=== PATIENT | female | born 1955 | race Caucasian/White ===

== ENCOUNTER 2024-09-26 09:52 | Observation (INO) ==
--- NOTE | 2024-08-23 11:47 | Communication Note ---
Date of Service: August 23, 2024 - Patient contacted PAT office inquiring if she can have planned Kenalog ophthalmic injection one week prior to surgery. 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 She verbalized understanding and denied questions or concerns.
--- NOTE | 2024-08-25 14:09 | PAT Medication Instructions ---
Medication Instructions Date of Service August 25, 2024 Home Medications Medication Instructions Recorded buspirone 5 mg tablet 5 mg PO TID PRN anxiety #30 tabs 08/25/23 betamethasone dipropionate 0.05 % 1 applic topical DAILY #60 mL 05/12/24 lotion Medication List: multivitamin 1 tab PO QAM buspirone 5 mg tablet 5 mg PO TID PRN anxiety estradiol 0.01% (0.1 mg/gram) vaginal cream 0.25 appful vaginal DAILY PRN prn betamethasone dipropionate 0.05 % lotion 1 applic topical DAILY MEDICATION INSTRUCTIONS: Continue as directed estradiol 0.01% (0.1 mg/gram) vaginal cream 0.25 appful vaginal DAILY PRN prn betamethasone dipropionate 0.05 % lotion 1 applic topical DAILY (do not apply after bathing prior to surgery) DO NOT take the morning of surgery multivitamin 1 tab PO QAM Take morning of surgery With a small sip of water, OTHERWISE NOTHING TO EAT OR DRINK AFTER MIDNIGHT: buspirone 5 mg tablet 5 mg PO TID PRN anxiety Take evening before surgery buspirone 5 mg tablet 5 mg PO TID PRN anxiety Other Notes If you have any questions please call us at [phone] or [phone] or [phone] or [phone]
--- NOTE | 2024-09-06 11:05 | Anesthesiology Consultation ---
Date of Service September 06, 2024 Assessment & Plan (1) Encounter for pre-operative examination: Plan - Patient contacted PAT office inquiring if she can have planned Kenalog ophthalmic injection one week prior to surgery. 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 She verbalized understanding and denied questions or concerns. - Outpatient joint assessment: Patient is currently scheduled for inpatient pathway. If re-evaluated and patient/surgeon requests outpatient pathway, patient is acceptable candidate for outpatient joint program from anesthesia standpoint pending surgeon's office assessment of pt motivation/support/completion of same day joint program preop requirements. Chart Review Chart Review: Acceptable Risk for Surgery and Patient seen in Pre Admission Testing Teaching & Discussion Pre-Anesthesia Teaching/Discussion Notes: Instructed NPO after midnight before surgery, except medications with 15 cc of water. Medication instructions provided according to the [facility] guidelines. History Surgery Operation Date: 09/26/24 07:15 Proposed Procedures p Right Total Knee Arthroplasty - Scott De León, Height/Weight Height: 5 ft 6 in Weight: 58.6 kg Allergies Allergy/AdvReac Type Severity Reaction Status Date / Time No Known Allergies Allergy Verified 08/23/24 09:30 Medications Home Medications Medication Instructions Recorded Confirmed Last Taken multivitamin 1 tab PO QAM 12/04/22 08/23/24 2 Weeks Ago ~03/02/23 estradiol 0.01% (0.1 mg/gram) 0.25 appful vaginal DAILY PRN prn 08/25/23 08/23/24 Unknown vaginal cream betamethasone dipropionate 0.05 % 1 applic topical DAILY #60 mL 05/12/24 08/23/24 Unknown lotion escitalopram oxalate 5 mg tablet mg 09/06/24 Unknown naproxen 250 mg tablet 250 mg PO BID PRN Pain 09/06/24 09/06/24 Unknown Additional Notes: Patient was instructed to check with surgeon's office regarding naproxen and that she can continue escitalopram as prescribed. She verbalized understanding and denied questions, concerns or additional medication changes. 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 Exercise / Class Metabolic Activity II 4-5 Yardwork/Stairs/Walk up hill (denies chest discomfort or shortness of breath with one flight of stairs) Past Family History Family History Aunt Colorectal cancer Uncle Myocardial infarction Father Alzheimer disease Other No family history of adverse response to anesthesia Denies family history of Ovarian cancer Prostate cancer Breast cancer Past Surgical History Surgical History H/O eye surgery left (July 2022) left eye with radioactive chips for the eye melanoma History of colonoscopy History of tonsillectomy History of wisdom tooth extraction S/P right knee arthroscopy Past Anesthesia History No Family Hx of Anesthesia Complications and Other (slow to wake, denies needing re-intubation) History of PONV No Hx of PONV and Hx of Motion Sickness Social History Smoking Status: Never smoker Do You Dip or Chew Tobacco: No Hx Alcohol Use: No (quit around 2016) Hx Substance Use: No substance use type: does not use Review of Systems Snoring, denies witnessed apneas. Patient denies chest pain, shortness of breath, dyspnea on exertion, reflux, fever, chills, cough, wheezing, or palpitations. Physical Exam Vital Signs Vitals BP 145/73 P 60 TEMP 98.4 SP02 96% on RA RESP 18 Physical Patient resting comfortably in chair in no acute distress, alert and oriented, responding appropriately throughout visit Full cervical extension range of motion without pain TMD 3.5 finger breadths Mallampati Score 2 Dentition: several caps/crowns, denies chipped or loose teeth, implants or bridges Lungs: normal respiratory effort. Good air movement, clear throughout to auscultation, no adventitious breath sounds Cardiac: regular rate and rhythm, no murmurs noted Carotid arteries: negative bruit bilat Lab Results Anesthesia Preop Results Results Anesthesia Widget: WBC 5.62 K/ul (4.8-10.8) 09/06/24 Hgb 11.6 g/dl (12.0-16.0) L 09/06/24 Hct 36.9 % (37.0-47.0) L 09/06/24 Plt 319 K/uL (130-400) 09/06/24 Na 141 mmol/L (136-145) 09/06/24 K 3.8 mmol/L (3.5-5.1) 09/06/24 Cl 104 mmol/L (98-107) 09/06/24 CO2 33 mmol/L (21-32) H 09/06/24 BUN 14 mg/dl (6-23) 09/06/24 Creat 0.89 mg/dl (0.6-1.2) 09/06/24 Glucose Level 90 mg/dl (70-99(Fasting)) 09/06/24 PT 10.5 Seconds (9.0-12.0) 09/06/24 PTT 26 Seconds (21-31) 09/06/24 INR 1.0 (0.9-1.1) 09/06/24 Blood Type A Positive 09/06/24 Antibody Screen NEGATIVE 09/06/24 Testing Electrocardiogram Date: 02/01/24 Sinus bradycardia with PACs, rate 59 bpm Other Testing Chest CT 04/07/24 No significant change compared to the prior study. No evidence for metastatic disease within the chest.
[~2024-09-26 09:52] MED LIST: BUPIVACAINE 0.25% PF 30 ML VIAL ONE; BUPIVACAINE 0.5 % 5 MG/1 ML PF 10ML VIAL ONE; DEXAMETHASONE SOD INJ 4 MG/ML VIAL ONE; EPINEPHrine INJ 1 MG/ML AMP ONE
[2024-09-26] MEDS: LR 500ML BOLUS, THEN 15ML/HR IV SCH (10:56)
[2024-09-26] MEDS: FAMOTIDINE 20 MG TAB PO SCH (10:57)
[2024-09-26] MEDS: ACETAMINOPHEN 500 MG TAB PO SCH ×2 (10:57→21:02)
[2024-09-26] MEDS: GABAPENTIN 300 MG CAP PO SCH (10:57)
[2024-09-26] MEDS: dexAMETHasone**PF** 10 MG/ML VIAL IV SCH (10:57)
[2024-09-26] MEDS: LR 60ML/HR IV SCH (10:57)
[2024-09-26] MEDS ORDERED: PROPOFOL IV EMULSION 10 MG/ML 20 ML VIAL IV ONE (11:43)
[2024-09-26] MEDS ORDERED: MIDAZOLAM HCL 1 MG/ML 2ML VIAL ONE ×2 (11:43)
[2024-09-26] MEDS ORDERED: LIDOCAINE 2% 2 ML VIAL/AMP(20MG/ML) INFIL ONE (11:43)
--- NOTE | 2024-09-26 12:35 | History & Physical Bridge Note ---
Date of Service September 26, 2024 History & Physical Bridge Note I have examined the patient, reviewed the History & Physical and in the interval since the performance of the History & Physical I have noted the following changes of clinical significance: no changes noted
[2024-09-26] MEDS: TRANEXAMIC ACID 1,000 MG **IV Pre-op IV SCH (12:36)
[2024-09-26] MEDS: ceFAZolin 2000MG 2,000 MG/15 ML SYR IV SCH (12:49)
[2024-09-26] MEDS: ORTHO JOINT ANESTHETIC ONE (13:16)
[2024-09-26] MEDS ORDERED: PROMETHAZINE HCL 6.25 MG in SODIUM CHLORIDE 0.9% 50 ML IV PRN (13:28)
[2024-09-26] MEDS ORDERED: ONDANSETRON INJ 2 MG/ML 2 ML VIAL IV PRN ×2 (13:28→17:23)
[2024-09-26] MEDS ORDERED: ATROPINE SULFATE 0.1 MG/ML 10ML SYR IV PRN (13:28)
[2024-09-26] MEDS ORDERED: ePHEDrine sulfate 50 MG/ML AMP IV PRN (13:28)
[2024-09-26] MEDS ORDERED: fentaNYL citrate PF 100 MCG/2 ML VIAL IV PRN (13:28)
[2024-09-26] MEDS: ROPIV 0.5% 246mg, Ketorolac 30mg, EPINEPHrine 0.5mg in NSS INFIL SCH (13:34)
[2024-09-26] MEDS: TRANEXAMIC ACID 1,000 MG **IV Intra-op IV SCH (13:41)
--- NOTE | 2024-09-26 14:17 | Anesthesiology Progress Note ---
Date of Service September 26, 2024 Anesthesia Post Procedure Vital Signs Vital Signs: Temp Pulse Resp BP Pulse Ox O2 Del Method 09/26/24 11:00 37.1 C 65 18 159/76 H 98 Room Air Transfer of Care Handoff Completed per policy Notes Mental Status: alert / awake / arousable Patient Amnestic to Procedure: Yes Nausea / Vomiting: adequately controlled Pain: adequately controlled Airway Patency, RR, SpO2: stable & adequate BP & HR: stable & adequate Hydration State: stable & adequate Neuraxial Anesthesia: was administered and sensory block is resolving Anesthetic Complications: no major complications apparent and Pt Satisfied with anesthetic care
--- NOTE | 2024-09-26 14:34 | XRay Report ---
XR knee RT 1 or 2V routine CLINICAL HISTORY: Surgical Post Op COMPARISON: None FINDINGS: Right knee prosthesis shows no hardware complication. Skin isidro are present. There is e xpected soft tissue gas. IMPRESSION: Unremarkable postoperative exam. ACT 112: Negative or not required by law. Electronically signed by: Peter Lopez M.D. 09/26/2024 2:32 PM
--- NOTE | 2024-09-26 14:38 | Operative Report ---
PG Post Operative Report Pre & Post Diagnosis Operation Date: 09/26/24 12:10 Pre-Op Diagnosis: Right Knee Osteoarthritis Post-Op Diagnosis: Right Knee Osteoarthritis I identified the patient and participated in the time-out.: Yes Procedure Operation Date: 09/26/24 12:10 Actual Procedures p Right Total Knee Arthroplasty(Right) - Scott De León DO Surgeon Scott De León DO Disbursing Agent Gennaro Fernando PA-C Estimated Blood Loss 50 Findings Consistent with Post-Op Diagnosis Specimens Right femoral and tibial bone Description of Procedure Implants used: I used a Scot[employer] Persona total knee arthroplasty system with a size 6 standard femur, D tibia, 31 oval patella, and a size 13 medial congruent polyethylene bearing. All components were cemented in place with Biomet cement. Domonique arrived [facility] for the above procedure. She was seen in the preoperative holding area and the operative extremity was identified and signed. She was given a preoperative antibiotic, TXA, a spinal anesthetic and an adductor nerve block. She was taken back to the operating room and laid on the table in supine position. She was given basic sedation. The operative knee was then prepped and draped in sterile fashion. A timeout was done, and the patient and the operative extremity was properly identified. A midline incision was made directly over the patella. Dissection was taken down to the extensor mechanism. A medial parapatellar arthrotomy was used. The medial retinaculum was released and the fat pad was mostly excised. The knee was flexed and the ACL, PCL, and meniscus were removed. A drill was sent down the center of the femoral canal followed by an intramedullary candelaria. Off that candelaria a distal femoral cutting block was placed. 9 mm was resected off the distal femur at 5 of valgus. A posterior referencing AP sizing guide was then placed on the distal femur. The femur measured to be a size 6. 2 drill holes were placed in 3 of external rotation. A 4-in-1 cutting block was then impacted into place. Anterior, posterior, and chamfer cuts were then made. The proximal tibia was then exposed. An external tibial alignment guide was placed. A tibial cut guide was then anchored in place and the proximal tibia was then resected. The posterior aspect of the knee was then opened up and any additional meniscus fragments and osteophytes were removed. The tibia measured to be a size D. The tibial plate was then placed in the appropriate rotation and the tibia was drilled and punched. Trial components were then placed. I used a size 13 medial congruent polyethylene insert. The knee was brought through a full range of motion and felt to be stable. The peg holes for the femoral component were then drilled. The patella was then everted and 9 mm was resected off the posterior aspect of the patella. The patella measured to be a size 31 oval. 3 peg holes were then drilled. A trial patella was placed. The knee was once again brought through a full range of motion and felt to be stable. Trial components were then removed. The surrounding soft tissues were injected with 100 cc of an orthopedic pain control cocktail. All components were then cemented into place with Biomet cement. The final polyethylene insert was then snapped into place. Once cement was dry the tourniquet was deflated. Hemostasis was obtained. A dilute betadyne lavage was then done for 3 minutes. The joint was then irrigated with normal saline solution. The medial parapatellar arthrotomy was then closed with #1 Vicryl suture. The skin was closed with 2-0 Vicryl, 3-0V lock suture, and isidro. A soft compressive dressing was placed. She was then transferred to a hospital bed and taken to the postanesthesia care unit in stable condition. She tolerated the procedure well. Gennaro Fernando PA-C, was present for the entire procedure. He was critical for patient positioning, prepping, draping, retraction exposure, wound closure and application of sterile dressing. I attest to the content of the Intraoperative Record and any orders documented therein. Any exceptions are noted below.
[2024-09-26 16:44] VITALS: RESP 16
[2024-09-26] MEDS ORDERED: METOCLOPRAMIDE HCL INJ 5 MG/ML 2 ML VIAL IV PRN (17:23)
[2024-09-26] MEDS ORDERED: HYDROmorphone INJ 0.5 MG/0.5 ML SYR IV PRN (17:23)
[2024-09-26] MEDS ORDERED: MAGNESIUM HYDROXIDE SUSP 30 ML UDC PO PRN (17:23)
[2024-09-26] MEDS ORDERED: NALOXONE HCL 0.4 MG/1 ML VIAL/CARP IV PRN (17:23)
[2024-09-26] MEDS ORDERED: bisacodyL 10 MG SUPP PR PRN (17:23)
[2024-09-26] MEDS: KETOROLAC TROMETHAMINE 15 MG/ML VIAL IV SCH (17:38)
[2024-09-26] MEDS: DOCUSATE SODIUM 100 MG CAP PO SCH (20:29)
[2024-09-26] MEDS: SENNA 8.6 MG TAB PO SCH (20:29)
[2024-09-26] MEDS: ceFAZolin 1000MG 1,000 MG/7.5 ML SYR IV SCH (21:02)
[2024-09-27 07:20] VITALS: BP 152/76; PULSE 62; TEMP 97.5; O2SAT 98
--- NOTE | 2024-09-27 07:36 | Orthopedic Progress Note ---
Date of Service September 27, 2024 Assessment & Plan (1) Status post right knee replacement: Overall she is doing very well. She is not having much pain in the right knee. She will be seen by physical therapy today for ambulation and range of motion exercises. The nursing staff can change her dressing after physical therapy. She can be discharged to home later today. She will follow-up orthopedics in 2 weeks. Subjective Domonique was seen and examined at bedside this morning. Overall she is doing fairly well. She is not having much pain in the right knee. She has been up and ambulating to the bathroom. She has no complaints. . . Review of Systems All systems reviewed & are unremarkable except as noted in HPI & below. Physical Exam On physical examination of the right knee, the dressing is clean and dry. Her leg is out full extension. She has active dorsiflexion plantarflexion of her right ankle. Results & Data Results & Data Laboratory Results . Diagnostic Findings Postoperative x-rays of the right knee show the prosthesis to be in anatomic alignment without any evidence of fracture, dislocation, or loosening.. PG Care Time/CCT Total # of Minutes Spent Total Time Spent with Patient: Total time spent is greater than 50% in coordination of care (as documented) at patient's floor/unit and/or counseling patient: Coding Level of Care Code 97710 Post Operative Follow-Up Diagnoses Status post right knee replacement Z96.651
--- NOTE | 2024-09-27 07:37 | Discharge Summary ---
Date of Service September 27, 2024 Principal Diagnosis Same as "Discharge Diagnosis" noted below under Discharge Instructions. Discharge Exam On physical examination of the right knee, the dressing is clean and dry. Her leg is out full extension. She has active dorsiflexion plantarflexion of her right ankle. Discharge Data Procedures Performed Operation Date: 09/26/24 12:10 Actual Procedures p Right Total Knee Arthroplasty(Right) - Scott De León DO Ordered Studies 09/26/24 05:00 US - OR guided needle placemen Routine Hospital Course (1) Status post right knee replacement: On September 26, 2024 Domonique arrived at [facility] and underwent a right knee replacement without complication. She had a spinal anesthetic. Postoperatively she was started on aspirin for DVT prophylaxis and transferred to the general orthopedic floors. Her hospital course was uneventful. On postop day #1, her vital signs were stable and her pain was well-controlled. She was able to participate well with physical therapy doing ambulation and range of motion exercises. She was then discharged to home. She will follow-up orthopedics in 2 weeks. PG Care Time/CCT Total # of Minutes Spent Total Time Spent with Patient: Total time spent is greater than 50% in coordination of care (as documented) at patient's floor/unit and/or counseling patient: Discharge Plan Discharge Items Patient Disposition: Home - Self-Care Reason For Visit: Right Knee Arthritis Discharge Diagnosis: Right knee replacement Activity: Per Instructions section Non-emergency contact: Surgeon Call non-emergency contact if: your wound has increased redness and your wound has increased drainage Follow-up/Referrals: Tonio Souza DO [Primary Care Provider] - Diet: Regular Addtl Attending Provider Instructions: Activity and Therapy Recommendations: * If you are using [facility] then therapy will be provided at your home until they feel you have accomplished all of your goals. * If you are using [facility] then Physical Therapy will be provided until they feel you are ready to start Outpatient Physical Therapy. * If you are not using home therapy then Outpatient Physical Therapy should start about 3-5 days from your day of surgery. Therapy will last about 6-10 weeks * It is important not to put a pillow under your knee when you are relaxing or sleeping. It is just as important to make sure you are getting your knee perfectly straight as it is to regain your knee bend. * You were shown a series of exercises in the hospital. Do these exercises three times each day including the exercises you were shown in physical therapy. * Get up and walk several times each day. For the first four weeks, try not to stand or walk for more than one hour at a time. If you do stand or walk for more than one hour, you will not hurt anything, but your leg will likely swell. * As you feel comfortable, you may change from the walker or crutches to a cane and then to independent walking. Medications: * Narcotic You will likely be sent home from the hospital with a prescription for the narcotic pain medication that worked best throughout your stay. * Cefadroxil -take the antibiotic twice a day for 10 days to help prevent infection. * Aspirin Most patients will be required to take Aspirin 81mg twice a day for 6 weeks after surgery. This is obtained [id number] and a prescription is not necessary. * Other medications may be prescribed for specific circumstances. If you have any questions, please call the office at . * Resume previous home medications unless otherwise instructed TEDs/Elastic Stockings: The white elastic stockings help limit swelling and prevent blood clots from forming in your legs.~ The more you wear them, the more they work. Wear them for six weeks. Dressing Care: The dressing can be changed after physical therapy on postop day #1. Daily dry dressing changes for a few days, especially if the incision is still draining some. If the incision is not draining then you may leave the isidro open to air. If there is a little bit of drainage or if the isidro are getting stuck on your clothing then cover the incision with a dry dressing. The isidro will be removed at your 2 week follow-up appointment. Showering: You may shower 5 days from the day of surgery as long as the incision is no longer draining. You may shower with the isidro exposed. Let soapy water run over the isidro and pat them dry. Do not scrub or soak the incision. Diet: You may resume your previous diet. Things To Watch For: * Drainage from the incision site that occurs more than one week after your surgery. * Increased redness at the incision site. * Fever above 102 degrees Fahrenheit. * Unusual chest pain or shortness of breath. * Call [facility] at with any of the above problems Follow-Up Visit: Follow-up with Dr. De León's office 2-3 weeks after your day of surgery. We will remove your isidro and answer any questions. If you have any additional questions or concerns, Dr De León is usually in the office at the same time and will be available An appointment was probably scheduled when you signed-up for surgery in the office. If you have any questions call Office Instructions: More detailed instructions as well as Frequently Asked Questions were provided in a folder by our office when you signed-up for surgery. Please review these instructions when you get home. If you have any further questions or concerns, please feel free to call the office at [phone] Pending Studies at Discharge: No Stand-Alone Forms: My [facility] Medications and DC Order Prescriptions: New aspirin [Adult Aspirin Regimen] 81 mg tablet,delayed release (DR/EC) 81 mg PO BID Qty: 84 0RF cefadroxil 500 mg capsule 500 mg PO BID 10 Days Qty: 20 0RF oxycodone 5 mg tablet 5 mg PO Q6H PRN (Reason: pain) Qty: 30 0RF Continued betamethasone dipropionate 0.05 % lotion 1 applic topical DAILY Qty: 60 1RF Rx Instructions: Apply to areas of the scalp daily at bedtime for up to 2 weeks as needed for flaring. estradiol 0.01 % (0.1 mg/gram) cream 0.25 appful vaginal DAILY PRN (Reason: prn) Rx Instructions: Daily for 2 weeks; 3 times a week for two weeks; 2-3 days a week after multivitamin Tablet 1 tab PO QAM escitalopram oxalate 5 mg tablet 0.5 mg PO 1XD naproxen 250 mg Tablet 250 mg PO BID PRN (Reason: Pain) Discharge Orders: Discharge Order (Routine); Ordered 09/27/24 Ordered By: Scott De León Admission Data Admit Date/Time: 09/26/24 14:11 Attending Provider: Scott De León Admit Provider: Scott De León Primary Care Provider: Tonio Souza
[2024-09-27] MEDS: ESCITALOPRAM OXALATE 10 MG TAB PO SCH (07:58)
[2024-09-27] MEDS: MULTIVITAMIN TAB PO SCH (07:59)
[2024-09-27] MEDS: dexAMETHasone 4 MG TAB PO SCH (07:59)
[2024-09-27] MEDS: oxyCODONE HCL IR 5 MG TAB (IMMEDIATE RELEASE) PO PRN (11:12)
== END 2024-09-27 12:52 | disposition home or self-care (01) ==
LOC: ASU 09:52 → PACUINP 09:52 → 3E 17:20